=== PATIENT | male | born 1985 | race Caucasian/White ===

== ENCOUNTER 2017-08-07 11:32 | Emergency (ER) | payer BC ==
--- NOTE | 2017-08-07 12:12 | ER ---
Nurse's Notes [facility] Name: Jonathan Valencia Age: 32 yrs Sex: Male : 1985 Arrival Date: 08/07/2017 Time: 11:36 Bed 4 Private MD: None, None Diagnosis: Saddle embolus of pulmonary artery with acute cor pulmonale;Pulmonary embolism;Acute embolism and thrombosis of other specified deep vein of lower extremity;Chest pain, unspecified;Dyspnea Presentation: 08/07 11:41 Presenting complaint: Patient states: SOB, dizziness, and left sided chest pain that hb radiates to left side of neck and left shoulder that started while walking up stair this morning. Transition of care: patient was not received from another setting of care. Onset of symptoms was August 07, 2017 at 08:30. Risk Assessment: Do you want to hurt yourself or someone else? Patient reports no desire to harm self or others. Initial Sepsis Screen: Does the patient meet any 2 criteria? No. Patient's initial sepsis screen is negative. Does the patient have a suspected source of infection? No. Patient's initial sepsis screen is negative. Care prior to arrival: None. 11:41 Method Of Arrival: Ambulatory hb 11:41 Acuity: BRENDAN 3 hb Triage Assessment: 13:10 General: Appears in no apparent distress. Behavior is calm, cooperative. iw Historical: - Allergies: 11:44 No Known Allergies; hb - Home Meds: 11:44 None [Active]; hb - PMHx: 11:44 None; hb - PSHx: 11:44 None; hb - Immunization history:: Adult Immunizations up to date. - Social history:: Smoking status: Patient/guardian denies using tobacco. - Ebola Screening: : No symptoms or risks identified at this time. - Family history:: not pertinent. Screenin:36 Abuse screen: Denies threats or abuse. Denies injuries from another. Nutritional iw screening: No deficits noted. Tuberculosis screening: No symptoms or risk factors identified. Fall Risk IV access (20 points). Assessment: 13:10 Reassessment: verified 10,000 unit Heparin IVP with Dr. Espinoza, administered to LAC, iw pt transported back to ER bed 4 from US, placed back on monitor, placed on 2 L NC, pt and updated on POC, VSS, pt denies SOB or chest pain at this time. 13:10 Cardiovascular: Denies chest pain. iw Vital Signs: 11:43 BP 140 / 70; Pulse 114; Resp 20; Temp 97.9; Pulse Ox 96% on R/A; Weight 104.33 kg; hb Height 6 ft. (182.88 cm); Pain 3/10; 13:24 Pulse 102; Resp 21; Pulse Ox 96% on 2 lpm NC; Pain 0/10; iw 11:43 Body Mass Index 31.19 (104.33 kg, 182.88 cm) hb ED Course: 11:36 Patient arrived in ED. mr 11:36 None, None is Private Physician. mr 11:43 Triage completed. hb 11:44 Ashutosh Espinoza MD is Attending Physician. bharat 11:44 Arm band placed on right wrist. hb 11:48 Shari Cortes RN is Primary Nurse. jl7 11:50 Patient has correct armband on for positive identification. personnel monitor on. Pulse iw ox on. NIBP on. 12:03 Initial lab(s) drawn, by me, sent to lab. EKG done, by ED staff, reviewed by Ashutosh Espinoza MD. Inserted saline lock: 22 gauge in left antecubital area, using aseptic technique. Blood collected. 12:11 Will Tilley DO is Hospitalizing Provider. bharat 12:[address] via stretcher. vm2 12:32 XRAY Chest (1 view) In Process Unspecified. EDMS 12:35 CT completed. Patient moved back from CT. vm2 12:59 Ultrasound completed. Patient tolerated well. sg3 14:37 No provider procedures requiring assistance completed. Patient transferred, IV remains iw in place. Oxygen administration via nasal cannula \T\ 2L/min. Administered Medications: 12:18 Drug: NS 0.9% 1000 ml Route: IV; Rate: 125 ml/hr; Site: left antecubital; jl7 14:00 Follow up: IV Status: Infusion continued upon transfer jl7 12:18 Drug: Aspirin Chewable Tablet 324 mg Route: PO; jl7 13:42 Follow up: Response: No adverse reaction jl7 12:19 Drug: Lovenox 1 mg/kg Route: Sub-Q; Site: right lower abdomen; jl7 13:42 Follow up: Response: No adverse reaction jl7 13:08 Drug: HEParin 97120 units {Co-Signature: aa5 (Marcia Awad RN).} Route: IV; Rate: iw bolus; Site: left antecubital; 13:09 Follow up: IV Status: Completed infusion 13:20 Drug: NS 0.9% 1000 ml Route: IV; Rate: 1 bolus; Site: left antecubital; jl7 14:30 Follow up: IV Status: Completed infusion jl7 Outcome: 12:11 Decision to Hospitalize by Provider. bharat 13:04 ER care complete, transfer ordered by . [facility] 14:36 Transferred by ground EMS to [facility], Transfer form completed. iw X-rays sent w/ patient. 14:36 Condition: stable 14:36 Discharge instructions given to patient, family, Instructed on the need for transfer. 14:37 Patient left the ED. iw Signatures: Dispatcher [employer] EDMS Pop Raya jb1 Ashutosh Espinoza MD MD cha Rivera, Maria mr Margret Quinones RN RN Alysia Oliva RN RN Shari Cortes RN RN jl7 Ebony Pantoja 2 Stefani Parada 3 Marcia Awad RN aa5 Corrections: (The following items were deleted from the chart) 12:27 12:18 Radiology exam delayed due to lab results not completed at this time. vm2 (BUN/Creatinine) vm2
--- NOTE | 2017-08-07 12:12 | EDPHYS ---
Physician Documentation [facility] Name: Jonathan Valencia Age: 32 yrs Sex: Male : 1985 Arrival Date: 08/07/2017 Time: 11:36 Bed 4 Private MD: None, None ED Physician Ashutosh Espinoza HPI: 08/07 12:09 This 32 yrs old Male presents to ER via Ambulatory with complaints of Chest bahrat Pain, Shortness Of Breath. 12:09 The patient or guardian reports chest pain that is located primarily in the substernal bharat area. The pain does not radiate. Associated signs and symptoms: Pertinent positives: shortness of breath. The chest pain is described as a heaviness, sharp. Modifying factors: The symptoms are alleviated by remaining still, the symptoms are aggravated by exertion. Severity of pain: At its worst the pain was moderate in the emergency department the pain has improved moderately. Historical: - Allergies: 11:44 No Known Allergies; hb - Home Meds: 11:44 None [Active]; hb - PMHx: 11:44 None; hb - PSHx: 11:44 None; hb - Immunization history:: Adult Immunizations up to date. - Social history:: Smoking status: Patient/guardian denies using tobacco. - Ebola Screening: : No symptoms or risks identified at this time. - Family history:: not pertinent. ROS: 12:09 Constitutional: Negative for fever, chills, and weight loss, Eyes: Negative for injury, bharat pain, redness, and discharge, ENT: Negative for injury, pain, and discharge, Neck: Negative for injury, pain, and swelling, Abdomen/GI: Negative for abdominal pain, nausea, vomiting, diarrhea, and constipation, Back: Negative for injury and pain, : Negative for injury, bleeding, discharge, and swelling, MS/Extremity: Negative for injury and deformity, Skin: Negative for injury, rash, and discoloration, Neuro: Negative for headache, weakness, numbness, tingling, and seizure, Psych: Negative for depression, anxiety, suicide ideation, homicidal ideation, and hallucinations, Allergy/Immunology: Negative for hives, rash, and allergies, Endocrine: Negative for neck swelling, polydipsia, polyuria, polyphagia, and marked weight changes, Hematologic/Lymphatic: Negative for swollen nodes, abnormal bleeding, and unusual bruising. 12:09 Cardiovascular: Positive for chest pain. 12:09 Respiratory: Positive for cough, shortness of breath, on exertion. Exam: 12:09 Constitutional: This is a well developed, well nourished patient who is awake, alert, bharat and in no acute distress. Head/Face: Normocephalic, atraumatic. Eyes: Pupils equal round and reactive to light, extra-ocular motions intact. Lids and lashes normal. Conjunctiva and sclera are non-icteric and not injected. Cornea within normal limits. Periorbital areas with no swelling, redness, or edema. ENT: Nares patent. No nasal discharge, no septal abnormalities noted. Tympanic membranes are normal and external auditory canals are clear. Oropharynx with no redness, swelling, or masses, exudates, or evidence of obstruction, uvula midline. Mucous membranes moist. Neck: Trachea midline, no thyromegaly or masses palpated, and no cervical lymphadenopathy. Supple, full range of motion without nuchal rigidity, or vertebral point tenderness. No Meningismus. Chest/axilla: Normal chest wall appearance and motion. Nontender with no deformity. No lesions are appreciated. Cardiovascular: Regular rate and rhythm with a normal S1 and S2. No gallops, murmurs, or rubs. Normal PMI, no JVD. No pulse deficits. Respiratory: Lungs have equal breath sounds bilaterally, clear to auscultation and percussion. No rales, rhonchi or wheezes noted. No increased work of breathing, no retractions or nasal flaring. Abdomen/GI: Soft, non-tender, with normal bowel sounds. No distension or tympany. No guarding or rebound. No evidence of tenderness throughout. Back: No spinal tenderness. No costovertebral tenderness. Full range of motion. Male : Normal genitalia with no discharge or lesions. Skin: Warm, dry with normal turgor. Normal color with no rashes, no lesions, and no evidence of cellulitis. MS/ Extremity: Pulses equal, no cyanosis. Neurovascular intact. Full, normal range of motion. Neuro: Awake and alert, GCS 15, oriented to person, place, time, and situation. Cranial nerves II-XII grossly intact. Motor strength 5/5 in all extremities. Sensory grossly intact. Cerebellar exam normal. Normal gait. Psych: Awake, alert, with orientation to person, place and time. Behavior, mood, and affect are within normal limits. Vital Signs: 11:43 BP 140 / 70; Pulse 114; Resp 20; Temp 97.9; Pulse Ox 96% on R/A; Weight 104.33 kg; hb Height 6 ft. (182.88 cm); Pain 3/10; 13:24 Pulse 102; Resp 21; Pulse Ox 96% on 2 lpm NC; Pain 0/10; iw 11:43 Body Mass Index 31.19 (104.33 kg, 182.88 cm) hb MDM: 11:44 Patient medically screened. [facility] 12:18 Data reviewed: vital signs, nurses notes, lab test result(s), EKG, radiologic studies, [facility] CT scan, plain films, ultrasound. 08/07 11:46 Order name: Basic Metabolic Panel; Complete Time: 12:54 [facility] 08/07 11:46 Order name: BNP; Complete Time: 12:54 [facility] 08/07 11:46 Order name: CBC with Diff; Complete Time: 12:59 [facility] 08/07 11:46 Order name: Ckmb; Complete Time: 12:54 [facility] 08/07 11:46 Order name: CPK; Complete Time: 12:54 [facility] 08/07 11:46 Order name: LFT's; Complete Time: 12:54 [facility] 08/07 11:46 Order name: Magnesium; Complete Time: 12:54 [facility] 08/07 11:46 Order name: PT-INR; Complete Time: 12:54 [facility] 08/07 11:46 Order name: Ptt, Activated; Complete Time: 12:54 [facility] 08/07 11:46 Order name: Troponin (emerg Dept Use Only); Complete Time: 12:54 [facility] 08/07 11:46 Order name: XRAY Chest (1 view) [facility] 08/07 12:09 Order name: CT Chest For PE Angio [facility] 08/07 12:09 Order name: US Extremity Venous W Compression Jonas [facility] 08/07 12:56 Order name: Manual Differential; Complete Time: 12:59 EDMS 08/07 11:46 Order name: EKG; Complete Time: 11:46 [facility] 08/07 11:46 Order name: Cardiac monitoring; Complete Time: 12:24 [facility] 08/07 11:46 Order name: EKG - Nurse/Tech; Complete Time: 12:24 [facility] 08/07 11:46 Order name: IV Saline Lock; Complete Time: 12:24 [facility] 08/07 11:46 Order name: Labs collected and sent; Complete Time: 12:24 [facility] 08/07 11:46 Order name: O2 Per Protocol; Complete Time: 12:24 [facility] 08/07 11:46 Order name: O2 Sat Monitoring; Complete Time: 12:24 [facility] 08/07 12:17 Order name: CONS Physician Consult EDME 08/07 13:02 Order name: CT EDME 08/07 13:24 Order name: US EDME Administered Medications: 12:18 Drug: NS 0.9% 1000 ml Route: IV; Rate: 125 ml/hr; Site: left antecubital; jl7 14:00 Follow up: IV Status: Infusion continued upon transfer jl7 12:18 Drug: Aspirin Chewable Tablet 324 mg Route: PO; jl7 13:42 Follow up: Response: No adverse reaction jl7 12:19 Drug: Lovenox 1 mg/kg Route: Sub-Q; Site: right lower abdomen; jl7 13:42 Follow up: Response: No adverse reaction jl7 13:08 Drug: HEParin 48483 units {Co-Signature: aa5 (Marcia Awad RN).} Route: IV; Rate: iw bolus; Site: left antecubital; 13:09 Follow up: IV Status: Completed infusion 13:20 Drug: NS 0.9% 1000 ml Route: IV; Rate: 1 bolus; Site: left antecubital; jl7 14:30 Follow up: IV Status: Completed infusion jl7 Disposition: 08/07/17 13:04 Transfer ordered to [facility]. Diagnosis are Saddle embolus of pulmonary artery with acute cor pulmonale, Pulmonary embolism, Acute embolism and thrombosis of other specified deep vein of lower extremity, Chest pain, unspecified, Dyspnea. - Reason for transfer: Higher level of care. - Accepting physician is to [facility]. - Condition is Stable. - Problem is new. - Symptoms have improved. Signatures: Dispatcher [employer] EDME Ashutosh Espinoza MD MD cha Williams, Irene, RN Ashutosh Silva PA PA cp Baxter, Heather RN Shari Pinedo RN RN jl7 Marcia Awad RN aa5 Corrections: (The following items were deleted from the chart) 13:01 12:11 Hospitalization Ordered by Will Tilley DO for Observation. Preliminary bharat diagnosis is Chest pain, unspecified; Dyspnea. Bed requested for Telemetry/MedSurg (observation). Status is Observation. Condition is Stable. Problem is new. Symptoms have improved. UTI on Admission? No. bharat 14:37 13:04 08/07/2017 13:04 Transfer ordered to [facility]. Diagnosis is iw Saddle embolus of pulmonary artery with acute cor pulmonale; Pulmonary embolism; Acute embolism and thrombosis of other specified deep vein of lower extremity; Chest pain, unspecified; Dyspnea. Reason for transfer: Higher level of care. Accepting physician is to [facility]. Condition is Stable. Problem is new. Symptoms have improved. bharat
[2017-08-07] MEDS ORDERED: ASPIRIN 81 MG CHEWABLE TABLET ONE (12:13)
[2017-08-07] MEDS ORDERED: ENOXAPARIN 100 MG/ML SYR SQ ONE (12:14)
[2017-08-07] MEDS ORDERED: NA CHLORIDE 0.9% 1,000 ML ONE ×2 (12:14→14:03)
[2017-08-07 12:30] LABS: Protime INR 1.18
[2017-08-07 12:31] LABS: Potassium 3.9 mEq/L (3.6-5.0)
[2017-08-07 12:37] LABS: Albumin 4.6 g/dL (3.2-5.5); Bilirubin Direct 0.1 mg/dL (0-0.2); Bilirubin Total 0.9 mg/dL (0.3-1.2); Magnesium 2.3 mg/dL (1.8-2.5); Protein, Total 8.3 g/dL (6.0-8.3)
[2017-08-07 12:40] LABS: CKMB Creatine Kinase MB 3.8 ng/ml (0.3-4.0)
[2017-08-07 12:54] LABS: Hematocrit 50.5 % (39.6-49.0); MCH 31.1 pg (27.0-35.0); MCV 91.5 fL (80-100); MPV 8.8 fL (7.6-11.3); RBC Red Blood Cell Count 5.51 M/uL (4.33-5.43)
[2017-08-07 12:56] LABS: Blood Morphology Comment NOT SEEN (NOT SEEN); Platelet Estimate ADEQ
--- NOTE | 2017-08-07 13:01 | RAD REPORT ---
EXAM DESCRIPTION: CT - Chest For Pe Angio - 08/07/2017 12:36 pm CLINICAL HISTORY: Chest pain. COMPARISON: None. TECHNIQUE: CT angiogram of the pulmonary arteries was performed with MIP. All CT scans are performed using dose optimization technique as appropriate and may include automated exposure control or mA/KV adjustment according to patient size. FINDINGS: Extensive bilateral pulmonary thromboembolism is seen including saddle embolism. No acute aortic finding demonstrated. Moderate RV strain pattern is present. The lungs are clear. No significant pericardial or pleural fluid. No concerning bony finding. Small hiatal hernia. IMPRESSION: Extensive bilateral acute pulmonary thromboembolism including large saddle embolism. Moderate RV strain pattern. The findings were discussed with Dr. Espinoza in the ER on 08/07/2017 at 1 p.m. by telephone.
[2017-08-07] MEDS ORDERED: HEPARIN 5000 UNIT/ML 1 ML VIAL ONE (13:05)
--- NOTE | 2017-08-07 13:05 | RAD REPORT ---
EXAM DESCRIPTION: RAD - Chest Single View - 08/07/2017 12:32 pm CLINICAL HISTORY: Chest pain. COMPARISON: None. FINDINGS: Portable technique limits examination quality. The lungs are grossly clear. The heart is normal in size. No displaced fractures. IMPRESSION: No acute intrathoracic process suspected.
--- NOTE | 2017-08-07 13:23 | RAD REPORT ---
EXAM DESCRIPTION: VAS - Extrem Venous W Compress Jonas - 08/07/2017 1:13 pm CLINICAL HISTORY: Bilateral leg edema and swelling. COMPARISON: None. TECHNIQUE: Real-time sonographic interrogation of the left and right lower extremity deep venous sys tems was performed. FINDINGS: Acute DVT is seen in the left lower extremity from the mid femoral vein to the distal popl iteal vein. No right lower extremity DVT. IMPRESSION: Positive for left lower extremity DVT.
--- NOTE | 2017-08-08 09:11 | EKG ---
Test Date: 2017-08-07 Test Time: 12:01:29 [employer] Manager: BRUNO MEASUREMENT RESULTS: Intervals: Rate: 113 ID: [id number] QRSD: 104 QT: 322 QTc: 441 [place]: P: 48 ID: [id number] QRS: -10 T: 24 INTERPRETIVE STATEMENTS: Sinus tachycardia Otherwise normal ECG No previous ECG available for comparison Electronically Signed On 08-08-17 09:08:39 CDT by Richardson Galeas
== END 2017-08-07 14:37 | disposition short-term general hospital (02) ==
LOC: ER 11:32 → UNDOADMOB 12:15 → ERHOLD 12:15 → ER 14:37
DX: I26.02 Saddle embolus of pulmonary artery with acute cor pulmonale (principal); I82.499 Acute embolism and thrombosis of other specified deep vein of unspecified lower extremity; R06.00 Dyspnea, unspecified
CPT/HCPCS: 36415; 71045; 71275; 80048; 80076; 82550; 82553; 83735; 83880; 84484; 85025; 85610; 85730; 93005; 93970; 96361; 96372; 96374; 99285; J1644; J1650; J7030; Q9967